=== PATIENT | male | born 1975 | race Caucasian/White ===

== ENCOUNTER 2024-11-02 19:59 | Emergency (ER) | payer BC, SELFPAY ==
[2024-11-02 20:00] VITALS: BP 197/121
--- NOTE | 2024-11-02 20:13 | ED.GENMED ---
History of Present Illness
General
Chief Complaint: Abdominal Pain
Source: patient
Exam Limitations: none
Time Seen by Provider: 11/02/24 20:06
History of Present Illness
History of Present Illness:
See MDM
Past History
Past History
ED Past Medical History: None
ED Past Surgical History: Other (Ventral hernia repair)
Social History
Tobacco: Non-smoker
Alcohol: None
Phy Exam
Physical Exam
Physical Exam:
See MDM
Course
Orders/Labs/Results
Orders:
Orders
11/02/24 20:12
CT Abd/pelvis W Iv Cont Urgent
Comment:
Reason For Exam: R lower/mid abd pain
0.9% Sodium Chloride 1000 ml [Nss] 1,000 ml IV BOLUS
Lorazepam [Ativan] 0.5 mg IV NOW STA
11/02/24 20:42
Complete Blood Count/With Diff Urgent
Comprehensive Metabolic Panel Urgent
Lipase Urgent
11/02/24 20:55
Urinalysis Reflex To Culture Urgent
Date Specimen was Collected: 11/02/24
Time Specimen was Collected: 20:50
Urine Microscopic Reflex Cult Urgent
Urine Culture Urgent
LEONILA Source: U
Specimen Description:
Date Specimen was Collected: 11/02/24
Time Specimen was Collected: 20:50
11/02/24 23:08
Amoxicillin 875 mg/Clav 125 mg [Augmentin 875 mg/125 mg] 1 tablet PO NOW STA
Abnormal Lab Results
11/02/24 11/02/24
20:42 20:55
Hgb 12.0 L g/dL
(13.0-18.0)
Hct 37.2 L %
(39.0-52.0)
MCV 69.3 L fL
(80.0-94.0)
MCH 22.3 L pg
(27.0-31.0)
MCHC 32.3 L g/dL
(33.0-37.0)
Abs Immat Gran (auto) 0.1 H 10^3/uL
(0-0.05)
Absolute Monos (auto) 0.8 H 10^3/uL
(0.1-0.6)
Immature Gran % 1.0 H %
(0-0.5)
Monocytes % 16.9 H %
(1.7-9.3)
Glucose 149 H mg/dl
(70-99)
ALT 56 H U/L
(0-50)
Lipase 347 H U/L
(23-300)
Urine Ketones 3+ A
(Negative)
Leukocyte Esterase Rfl 1+ A
(Negative)
Urine Bacteria (Reflex) Moderate A
(Negative)
Urine Albumin (Reflex) 2+ A
(Neg - Trace)
11/02/24 20:42
11/02/24 20:42
Vital Signs
Initial and Last Documented VS:
Initial Vital Signs
Temp Pulse Resp BP Pulse Ox
98.3 F 125 20 197/121 99
11/02/24 20:00 11/02/24 20:00 11/02/24 20:00 11/02/24 20:00 11/02/24 20:00
Last Documented Vital Signs
Temp Pulse Resp BP Pulse Ox
98.3 F 97 16 163/92 98
11/02/24 20:00 11/02/24 20:45 11/02/24 20:45 11/02/24 20:45 11/02/24 20:45
MDM/Problems Addressed
Differential Diagnosis Includes:
HPI and MDM Narrative:
49-year-old male presenting for evaluation of abdominal pain, nausea and diarrhea. Patient states that symptoms started about 4 days ago. He developed abdominal pain and dry heaving and chills. Since then, he has had several bouts of diarrhea.
Patient believes the dry heaving and diarrhea have been resolving but the abdominal pain continues. Patient is worried he could have appendicitis. He is also complaining of mild anxiety and panic attack.
He denies sick contacts.
On exam, he is well-appearing nontoxic. He does have mild right mid and right lower abdominal pain. No localized rebound.
Given location of pain and symptoms, will obtain CT to rule out acute appendicitis versus colitis
Physical exam
General: Well appearing and non-toxic
HEENT: protecting airway
Neck: appears supple
CV: No evidence of cyanosis
Resp: No accessory muscle use
Abd: Non-distended. Mild right mid and lower abdominal pain. No rebound
Extremities: No deformities
Neuro: alert
Psych: Mild anxiety
Skin: Intact
Problems Addressed including Acute and Chronic Conditions affecting care:
1. Abdominal pain
Acuity: acute
Prognosis: stable
Details: Given location of pain and duration, will obtain CT
Updates
CT consistent with mild colitis. Will start Augmentin but discussed the importance of GI follow-up. We also discussed the incidental findings and discussed the splenic cyst. 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 Regardless,
discussed the radiology suggestion of repeat CT in 6 months
Differential Diagnosis (but not limited to): Acute appendicitis, viral gastroenteritis, colitis
Testing considered: Abdominal ultrasound
Drug therapy (if applicable): OTC meds, please see d/c instruction regarding Rx drugs
Amount and/or Complexity of Data Reviewed
Clinical info obtained from: Patient
External data reviewed: N/A
Labs I independently reviewed (but not limited to):,white blood cell count normal
Radiology: The CT scan was personally and independently reviewed. In addition, official CT report reviewed.
Pulse Ox: not hypoxic
EKG independently reviewed: N/A
Modeling Director: N/A
Critical Care: N/A
Risk of Complication:
Social Determinants of health: Good social support
Discussed with other providers: N/A
Escalation of Care includes Admit/Obs: After being observed in the Emergency Department, pt stable for discharge.
Occasional wrong word or 'sound a like' substitutions may have occurred due to the inherent limitations of voice recognition software. Read the chart carefully and recognize, using context, where substitutions have occurred.
*Critical Care Note
Total Time (30-74mins, 75-104mins- exclusive of procedures): Not Applicable
ED Attending Note
-
Portions of this chart may have been created with voice recognition software.� Occasional wrong word or��sound alike� substitutions may have occurred due to the inherent limitations of voice recognition software.
Discharge Plan
Departure
Patient Disposition: Home (Routine Discharge)
Date of Disposition: 11/02/24
Time of Disposition: 23:11
Patient with high blood pressure during this ER visit?: Yes
Discharge Problem:
Colitis
Instructions: Colitis
Prescriptions:
New
amoxicillin-pot clavulanate 875-125 mg tablet
1 tab PO BID Qty: 14 0RF
Referrals:
Meeta Conner CRNP [Family Provider] -
Mattie Rodriguez MD [Active] -
Activity Restrictions/Additional Instructions:
Please return for any worsening symptoms.
You may return at any time if you have further concerns.
Please follow up with your doctor at the first available appointment, preferably this week.
Please make an appointment with the medical records analyst to set up a colonoscopy.
Thank you for choosing [facility].
Interventions
Interventions:
*Risk Screen - Suicide Last Done: 11/02/24 20:45
*General Assessment Last Done: 11/02/24 20:00
*Neglect/Abuse Screening Last Done: 11/02/24 20:45
*ED- Fall Risk Assessment Last Done: 11/02/24 20:45
*ED COVID-19 Vaccine History Last Done: 11/02/24 20:57
PW-[id number] Assessment Last Done: 11/02/24 20:57
Discharge Date and Time
Print Language: YAKUT
[2024-11-02] MEDS: ATIVAN 0.5 MG IV (20:37)
[2024-11-02] MEDS: NSS 1000 IV (20:41)
[2024-11-02 20:45] VITALS: BP 163/92; BMI 28.2
[2024-11-02 21:01] LABS: Urine Albumin 2+ (Neg - Trace); Urine Bilirubin Negative (Negative); Urine Character Slightly Cloudy (Clear); Urine Color Yellow; Urine Glucose Negative (Negative); Urine Ketone 3+ (Negative); Urine Leukocyte 1+ (Negative); Urine Nitrite Negative (Negative); Urine Occult Blood Negative (Negative); Urine Specific Gravity 1.025 (<1.030); Urine Urobilinogen 1+ (Neg - 1+)
[2024-11-02 21:02] LABS: Hematocrit 37.2 % (39.0-52.0); Mean Corp Hgb Conc. 32.3 g/dL (33.0-37.0); Mean Corpuscular Hgb 22.3 pg (27.0-31.0); Mean Corpuscular Volume 69.3 fL (80.0-94.0); Mean Platelet Volume 10.1 fL (7.4-10.4); Platelet Count 265 10^3/uL (130-400); Red Blood Cell Count 5.37 10^6/uL (4.70-6.10); Red Cell Dist. Width 14.2 % (11.5-14.5); White Blood Cell Count 4.9 10^3/uL (4.8-10.8)
[2024-11-02 21:13] LABS: ALT (SGPT) 56 U/L (0-50); AST (SGOT) 45 U/L (17-59); Albumin 4.8 g/dl (3.5-5.0); Alkaline Phosphatase 87 U/L (38-126); Blood Urea Nitrogen 20 mg/dl (9-20); Calcium 9.7 mg/dl (8.4-10.2); Carbon Dioxide 25 mmol/L (22-30); Chloride 101 mmol/L (98-107); Estimated Creatinine Clearance 110 ml/min; Glucose 149 mg/dl (70-99); Potassium 3.6 mmol/L (3.5-5.1); Sodium 136 mmol/L (135-145); Total Bilirubin 0.5 mg/dl (0.2-1.3); Total Protein 7.6 g/dl (6.3-8.2); eGFR > 60.00
[2024-11-02 21:14] LABS: Lipase 347 U/L (23-300)
[2024-11-02 21:23] LABS: Urine Amorphous Seen; Urine Hyaline Cast 0-2 /LPF (0-2); Urine Mucus Few
[2024-11-02 21:24] LABS: Urine Bacteria Moderate (Negative); Urine Red Blood Cell None Seen /HPF (0-2); Urine White Cell 0-2 /HPF (0-5)
[2024-11-02 21:32] LABS: % Basophils 1.2 % (0-2); % Eosinophils 1.6 % (0-6); % Lymphocytes 29.4 % (20.5-51.1); % Monocytes 16.9 % (1.7-9.3); % Neutrophils 49.9 % (42.2-75.2); Absolute Basophils 0.1 10^3/uL (0-0.2); Absolute Eosinophils 0.1 10^3/uL (0-0.7); Absolute Immature Granulocytes 0.1 10^3/uL (0-0.05); Absolute Lymphocytes 1.4 10^3/uL (1.2-3.4); Absolute Monocytes 0.8 10^3/uL (0.1-0.6); Absolute Neutrophils 2.4 10^3/uL (1.4-6.5); Nucleated Red Blood Cells % 0 % (-)
[2024-11-02] MEDS: AUGMENTIN 875 MG/125 MG 1 TABLET PO (23:24)
== END 2024-11-02 23:29 | disposition home or self-care (01) ==
LOC: EMR 19:59
PROVIDERS: EMERGENCY PHYSICIAN Student in an Organized Health Care Education/Training Program; FAMILY PHYSICIAN Nurse Practitioner Adult Health
DX: K52.9 Noninfective gastroenteritis and colitis, unspecified (principal); R03.0 Elevated blood-pressure reading, without diagnosis of hypertension
CPT/HCPCS: 99285; 96374; 96361; 74177; 80053; 81003; 81015; 83690; 85025; 87086; Q9967